=== PATIENT | male | born 1955 | race Caucasian/White ===

== ENCOUNTER → 2023-06-30 06:37 | Day surgery (SDC) | payer OTHER, SELFPAY | LOC: GI 06:37 | PROVIDERS: ATTENDING PHYSICIAN Internal Medicine Gastroenterology | DX: Z12.11 Encounter for screening for malignant neoplasm of colon (principal); Z86.010 Personal history of colon polyps; K57.30 Diverticulosis of large intestine without perforation or abscess without bleeding; K64.8 Other hemorrhoids; D12.0 Benign neoplasm of cecum | CPT/HCPCS: 45380; 88305 ==

== ENCOUNTER → 2024-01-04 14:37 | Outpatient (REF) | payer OTHER, SELFPAY | LOC: RAD 14:37 | PROVIDERS: ATTENDING PHYSICIAN Family Medicine | DX: M79.605 Pain in left leg (principal) | CPT/HCPCS: 93971 ==

== ENCOUNTER → 2024-01-05 09:22 | Outpatient (REF) | payer OTHER, SELFPAY | LOC: RAD 09:22 | PROVIDERS: ATTENDING PHYSICIAN Family Medicine | DX: M25.562 Pain in left knee (principal) | CPT/HCPCS: 73564 ==

== ENCOUNTER → 2024-02-14 17:26 | Outpatient (REF) | payer OTHER, SELFPAY | LOC: PAVMRI 17:26 | PROVIDERS: ATTENDING PHYSICIAN Family Medicine | DX: M17.2 Bilateral post-traumatic osteoarthritis of knee (principal); M25.562 Pain in left knee | CPT/HCPCS: 73721 ==

== ENCOUNTER → 2024-04-30 12:27 | Outpatient (REF) | payer OTHER, SELFPAY | LOC: RAD 12:27 | PROVIDERS: ATTENDING PHYSICIAN Physician Assistant; FAMILY PHYSICIAN Family Medicine | DX: M25.50 Pain in unspecified joint (principal); M25.511 Pain in right shoulder; M25.531 Pain in right wrist | CPT/HCPCS: 73030; 73100 ==